=== PATIENT | female | born 1945 | race Two or more races ===

== ENCOUNTER 2022-06-09 13:04 | Emergency (ER) | payer OTHER ==
[~2022-06-09] VITALS: Ht 157.5 cm; Wt 49.9 kg
[~2022-06-09 13:04] MED LIST: ALENDRONATE SOD70 MG; ALLERGY RELIE15.8 ML NASAL; ALLOPURINOL300 MG; ARICEPT5 MG PO; CARVEDILOL3.125 MG; CHILDREN'S ASPI81 MG PO; CLARITIN10 M1 PO; CLONAZEPAM0.5 MG PO; CRESTOR40 MG PO; D3 + K2 DOTS 11 EACH PO; ELMIRON100 MG PO; FAMOTIDINE40 MG; FARXIGA10 MG; GABAPENTIN300 M2; INTESTINEX680 M1 PO; ISORDIL10 MG PO; ISOSORBIDE MONO30 M2; LISINOPRIL2.5 MG; METFORMIN HCL500 M3 PO; PACERONE100 MG PO; PROTONIX40 MG PO; SINGULAIR 10MG10 MG PO; SYNTHROID125 MCG PO; TRULICITY0.75 MG/0.; ULTRACET PO; WIXELA 250-501 EACH
== END 2022-06-09 17:06 | disposition home or self-care (01) ==
LOC: ER 13:04
DX: K59.00 Constipation, unspecified (principal); K62.5 Hemorrhage of anus and rectum; I10 Essential (primary) hypertension; E11.9 Type 2 diabetes mellitus without complications